=== PATIENT | female | born 1980 | race Caucasian/White ===

== ENCOUNTER → 2020-10-23 14:54 | Outpatient (CLI) | payer BC, SELFPAY ==
--- NOTE | ~2020-10-23 | XR_ITS ---
EXAMINATION: XR chest 2V 10/23/2020 15:19 INDICATION: Cough PROCEDURE: 2 view chest COMPARISON: No prior studies for comparison. FINDINGS: The lungs are clear. The lungs are hyperinflated which is consistent with, but not diagnost ic of chronic obstructive pulmonary disease. The cardiomediastinal silhouette is within normal limits . There are no pleural effusions. There is no pneumothorax suspected. IMPRESSION: 1: NO ACUTE CARDIOPULMONARY DISEASE. Reviewed, dictated and finalized at location A. OMER ACQUISITION MANAGER
== END ==
PROVIDERS: PCP Physician Assistant; Visit Provider Physician Assistant
DX: R05 Cough (principal)
CPT/HCPCS: 71046

== ENCOUNTER → 2021-09-05 03:24 | Outpatient (CLI) | payer BC, SELFPAY ==
[2021-09-10 22:24] LABS: SARS-CoV-2 RNA PCR Negative
== END ==
PROVIDERS: PCP Physician Assistant; Visit Provider Nurse Practitioner Adult Health
DX: R09.81 Nasal congestion (principal); Z20.822 Contact with and (suspected) exposure to COVID-19
CPT/HCPCS: C9803; U0003; U0005

== ENCOUNTER → 2022-05-23 10:17 | Outpatient (CLI) | payer BC, SELFPAY ==
--- NOTE | ~2022-05-23 | MM_ITS ---
EXAMINATION: MM screening patty BI w sakshi HISTORY: Screening mammogram TECHNIQUE: Craniocaudal and mediolateral oblique 3-D tomosynthesis images were obtained and synthetic 2-D images were generated. CAD analysis was submitted and interpreted. COMPARISON: None, baseline BREAST PARENCHYMAL COMPOSITION: The breasts are extremely dense, which lowers the sensitivity of mamm ography. FINDINGS: There is no suspicious mass, calcification, or architectural distortion to suggest malignan cy in either breast. IMPRESSION: 1. No mammographic evidence of malignancy. 2. Recommend routine screening mammography in one year. BI-RADS Category 1: Negative Reviewed, dictated and finalized at location A.
== END ==
PROVIDERS: PCP Nurse Practitioner Adult Health; Visit Provider Obstetrics & Gynecology
DX: Z12.31 Encounter for screening mammogram for malignant neoplasm of breast (principal)
CPT/HCPCS: 77063; 77067

== ENCOUNTER → 2022-08-06 08:49 | Outpatient (CLI) | payer BC, SELFPAY ==
--- NOTE | ~2022-08-06 | MMUS_ITS ---
EXAMINATION: MM diagnostic patty LT w sakshi, US breast LT limited HISTORY: Palpable left breast abnormality in the upper outer quadrant TECHNIQUE: Additional 3-D tomosynthesis images of the left breast were performed and synthetic 2-D im ages were generated. CAD analysis was submitted and interpreted. High resolution Limited left breast ultrasound was performed. COMPARISON: 05/23/2022 BREAST PARENCHYMAL COMPOSITION: The breasts are extremely dense, which lowers the sensitivity of mamm ography FINDINGS: MAMMOGRAPHIC FINDINGS: There are no suspicious masses, calcifications or architectural distortion in the left breast to sugg est malignancy. ULTRASOUND: Limited left breast ultrasound: At 2:00, 6 cm from the nipple there is a 2 mm cyst. No suspicious mas ses to suggest malignancy. IMPRESSION: 1. No evidence for malignancy in the left breast. 2. Routine yearly screening mammogram and regular clinical breast examination are recommended. BI-RADS Category 2: Benign finding(s). Reviewed, dictated and finalized at location A. RCEPTOR OPERATOR IMPRESSION: 1. No evidence for malignancy in the left breast. 2. Routine yearly screening mammogram and regular clinical breast examination a re recommended. BI-RADS Category 2: Benign finding(s).
== END ==
PROVIDERS: PCP Obstetrics & Gynecology; Visit Provider Obstetrics & Gynecology
DX: N63.20 Unspecified lump in the left breast, unspecified quadrant (principal)
CPT/HCPCS: 76642; 77061; 77065; G0279

== ENCOUNTER → 2023-08-07 10:27 | Outpatient (CLI) | payer BC, SELFPAY ==
--- NOTE | ~2023-08-07 | MM_ITS ---
EXAMINATION: MM screening patty BI w sakshi HISTORY: Screening mammogram TECHNIQUE: Craniocaudal and mediolateral oblique 3-D tomosynthesis images were obtained and synthetic 2-D images were generated. CAD analysis was submitted and interpreted. COMPARISON: 08/06/2022 diagnostic left mammogram, Limited left breast ultrasound 05/23/2022 bilateral screening mammogram BREAST PARENCHYMAL COMPOSITION: The breasts are extremely dense, which lowers the sensitivity of mamm ography. FINDINGS: There is no evidence of suspicious mass, calcification, or architectural distortion to sugg est malignancy in either breast. There has been no suspicious interval change. IMPRESSION: 1. No mammographic evidence of malignancy. 2. Recommend routine screening mammography in one year. 3. Extremely dense fibroglandular stroma throughout both breasts reduces the sensitivity of the mammo graphic examination. Monthly breast self examination is important as well as annual physical examinat ion. Breast ultrasound examination may be of supplemental benefit in this setting. BI-RADS Category 1: Negative Reviewed, dictated and finalized at location B. ESS CONSULTANT IMPRESSION: 1. No mammographic evidence of malignancy. 2. Recommend routine screening mammography in one year. 3. Extremely dense fibroglandular stroma throughout both breasts reduces the se nsitivity of the mammographic examination. Monthly breast self examination is i mportant as well as annual physical examination. Breast ultrasound examination may be of supplemental benefit in this setting. BI-RADS Category 1: Negative
== END ==
PROVIDERS: PCP Obstetrics & Gynecology; Visit Provider Obstetrics & Gynecology
DX: Z12.31 Encounter for screening mammogram for malignant neoplasm of breast (principal)
CPT/HCPCS: 77063; 77067

== ENCOUNTER → 2023-08-20 09:34 | Outpatient (CLI) | payer BC, SELFPAY ==
--- NOTE | ~2023-08-20 | MR_ITS ---
MRI of the left knee Clinical history: Chronic pain Technique: Coronal proton density and proton density-weighted images, sagittal proton-density and T2 fat-sat images, and axial proton-density fat-saturated images were acquired. Findings: Anterior and posterior cruciate ligaments are intact. Medial collateral ligament and the la teral collateral ligament complex are intact. Popliteus tendon is intact. Medial and lateral menisci are intact, without evidence of tear. No focal high-grade chondral lesion identified. Bone marrow signals are unremarkable. Extensor mechanism is intact. No joint effusion or Mayers's cyst. Impression: Unremarkable exam. Reviewed, dictated and finalized at location . FOR[employer]ING [employer] WORKER [employer]ESH Impression: Unremarkable exam.
== END ==
PROVIDERS: PCP Nurse Practitioner Family; Visit Provider Nurse Practitioner Family
DX: M25.562 Pain in left knee (principal); G89.29 Other chronic pain
CPT/HCPCS: 73721

== ENCOUNTER 2023-11-04 08:58 | Outpatient (CLI) | payer BC, SELFPAY ==
--- NOTE | ~2023-11-04 | US_ITS ---
EXAMINATION: US breast BI limited HISTORY: Palpable lumps in the upper outer quadrants of the breasts are clinical examination TECHNIQUE: Limited bilateral breast ultrasound was performed. COMPARISON: 08/06/2022 FINDINGS: There is a 1.6 x 0.8 cm oval, circumscribed, parallel, complex cystic and solid mass in the right breast at the 12:00 location, 3 cm from the mass demonstrates posterior acoustic enhancement a nd internal vascularity in the solid component. Sonographic features are suggestive of clustered micr ocysts. There is a 3 mm x 1 mm oval, circumscribed, parallel, hypoechoic mass with no posterior featu res or internal vascularity in left breast at the 1:30 location, 4 cm from the nipple. A 10 mm x 3 mm mass with similar sonographic features is also seen in the left breast at the 1:00 location, 6 cm fr om the nipple. No sonographic correlate is identified in the left breast at the site of the patient's pain. IMPRESSION: Probably benign bilateral breast masses. Follow-up targeted bilateral breast ultrasound in six months is recommended. BI-RADS category 3, probably benign findings. Reviewed, dictated and finalized at location A. HIKER IMPRESSION: Probably benign bilateral breast masses. Follow-up targeted bilateral breast ul trasound in six months is recommended. BI-RADS category 3, probably benign findings.
== END 2023-11-04 08:59 ==
PROVIDERS: PCP Surgery; Visit Provider Registered Nurse
DX: N63.10 Unspecified lump in the right breast, unspecified quadrant (principal); N63.20 Unspecified lump in the left breast, unspecified quadrant; R92.8 Other abnormal and inconclusive findings on diagnostic imaging of breast
CPT/HCPCS: 76642

== ENCOUNTER 2023-11-18 09:49 | Outpatient (CLI) | payer BC, SELFPAY ==
--- NOTE | ~2023-11-18 | MR_ITS ---
MR breast BI wo/w con 11/18/2023 13:08 ENVIRONMENTAL SERVICES DIRECTOR INDICATION: Left breast mass with pain. TECHNIQUE: MRI of the breasts perform using standard protocol pre-and post IV contrast with the follo wing sequences: Axial T2 STIR, axial T1, axial vibrant T1 with fat suppression precontrast and multip hasic postcontrast. 10 cc MultiHance administered intravenously. COMPARISON: Bilateral breast ultrasound dated 11/04/2023 and screening mammogram dated 08/07/2023 FINDINGS: There are no abnormalities on the precontrast sequences. There is moderate background paren chymal enhancement. In the upper inner quadrant of the right breast at 1:00 posteriorly, 9.6 cm from the nipple there is a 9 x 7 x 6 mm mass with rapid washout enhancement. There is appears to be contig uous with adjacent blood vessels. In the lower inner quadrant of the right breast at 4:00 there is a 7 x 7 x 4 mm irregular shaped oval mass with rapid washout heterogeneous enhancement. No evidence of signal abnormalities in the axillary or internal mammary node distributions. LEFT BREAST: No signal abnormalities on precontrast sequences. There is mild background parenchymal enhancement. No enhancing lesions following contrast administration. No areas of enhancement meeti ng threshold criteria on CAD analysis. No evidence of signal abnormalities in the axillary or inter nal mammary node distributions.] IMPRESSION: 1: Right breast: Focal masses of the right breast in the upper inner quadrant and the lower inner qu adrant as described above. The superior mass may be vascular in nature. Recommend second look complet e right breast ultrasound for further investigation. BI-RADS Category 0. 2: Left breast: Negative. No evidence of malignancy. No suspicious masses are identified to corresp ond to left breast masses seen on recent ultrasound. BI-RADS category 1. Recommend annual mammograph y follow-up. Reviewed, dictated and finalized at location A. RONMENTAL SERVICES DIRECTOR IMPRESSION: 1: Right breast: Focal masses of the right breast in the upper inner quadrant and the lower inner quadrant as described above. The superior mass may be vascu lar in nature. Recommend second look complete right breast ultrasound for furth er investigation. BI-RADS Category 0. 2: Left breast: Negative. No evidence of malignancy. No suspicious masses are identified to correspond to left breast masses seen on recent ultrasound. BI-R ADS category 1. Recommend annual mammography follow-up.
== END 2023-11-18 09:50 | disposition home or self-care (01) ==
PROVIDERS: PCP Surgery; Visit Provider Surgery
DX: N63.12 Unspecified lump in the right breast, upper inner quadrant (principal); N63.14 Unspecified lump in the right breast, lower inner quadrant; R92.343 Mammographic extreme density, bilateral breasts
CPT/HCPCS: 77049; A9577; C8908

== ENCOUNTER 2023-11-27 09:09 | Outpatient (CLI) | payer BC, SELFPAY ==
--- NOTE | ~2023-11-27 | US_ITS ---
US breast RT complete DATE: 11/27/2023 09:56 INDICATION: Second look ultrasound examination of right breast recommended on 11/18/2023 MRI breast ex amination TECHNIQUE: Real time and color flow imaging of the complete right breast, including all four quadrant s and subareolar area COMPARISON: 08/07/2023 bilateral screening mammogram 11/04/2023 bilateral limited breast ultrasound 11/18/2023 MRI breast bilateral FINDINGS: 12:00 3 cm from nipple: 13 x 7 x 16 mm complex mixed cystic and solid mass, with minimal internal v ascularity, with some thick septations. There is parallel orientation, but the margins are not comple tely defined. There is minimal focal posterior shadowing. Ultrasound-guided biopsy is recommended. No other suspicious mass or shadowing is detected. IMPRESSION: Indeterminate incompletely circumscribed complex mass with some internal vascularity, min imal shadowing; ultrasound-guided biopsy is recommended. Recommendation: Ultrasound-guided biopsy of right breast 12:00 lesion 3 cm from nipple Reviewed, dictated and finalized at Location A. Reviewed, dictated and finalized at location A. THER IMPRESSION: Indeterminate incompletely circumscribed complex mass with some int ernal vascularity, minimal shadowing; ultrasound-guided biopsy is recommended. Recommendation: Ultrasound-guided biopsy of right breast 12:00 lesion 3 cm from nipple
== END 2023-11-27 09:10 ==
LOC: MICIMG 09:11
PROVIDERS: PCP Obstetrics & Gynecology; Visit Provider Surgery
DX: R92.8 Other abnormal and inconclusive findings on diagnostic imaging of breast (principal); N63.10 Unspecified lump in the right breast, unspecified quadrant
CPT/HCPCS: 76641

== ENCOUNTER 2023-12-21 09:16 | Outpatient (CLI) | payer BC, SELFPAY ==
--- NOTE | ~2023-12-21 | US_ITS ---
US breast RT limited 12/24/2023 11:49 Indication: Right breast mass seen on prior examination. Biopsy requested. Procedure: High-resolution Limited ultrasound of the right breast Comparison: 11/27/2023 Findings: At 12:00, 3 cm from the nipple there is a cluster of microcysts measuring 1.6 x 0.7 x 0.8 cm with min imal vascularity in the intervening soft tissue between the cyst. No suspicious masses to suggest mal ignancy. Impression: 1: Benign-appearing cluster of microcyst of the right breast. No suspicious masses to suggest maligna ncy. Findings discussed with the patient at the time of examination. Short-term follow-up is recommen ded in 6 months. BI-RADS CATEGORY 3-PROBABLY BENIGN FINDING RECOMMENDATION: Six-month follow-up diagnostic right mammogram and right breast ultrasound recommende d. Reviewed, dictated and finalized at location A.
--- NOTE | ~2023-12-21 | US_ITS ---
US breast RT limited 12/24/2023 11:49 Indication: Right breast mass seen on prior examination. Biopsy requested. Procedure: High-resolution Limited ultrasound of the right breast Comparison: 11/27/2023 Findings: At 12:00, 3 cm from the nipple there is a cluster of microcysts measuring 1.6 x 0.7 x 0.8 cm with min imal vascularity in the intervening soft tissue between the cyst. No suspicious masses to suggest mal ignancy. Impression: 1: Benign-appearing cluster of microcyst of the right breast. No suspicious masses to suggest maligna ncy. Findings discussed with the patient at the time of examination. Short-term follow-up is recommen ded in 6 months. BI-RADS CATEGORY 3-PROBABLY BENIGN FINDING RECOMMENDATION: Six-month follow-up diagnostic right mammogram and right breast ultrasound recommende d. Reviewed, dictated and finalized at location A. Impression: 1: Benign-appearing cluster of microcyst of the right breast. No suspicious mas ses to suggest malignancy. Findings discussed with the patient at the time of e xamination. Short-term follow-up is recommended in 6 months. BI-RADS CATEGORY 3-PROBABLY BENIGN FINDING RECOMMENDATION: Six-month follow-up diagnostic right mammogram and right breast ultrasound recommended.
== END 2023-12-21 09:17 | disposition home or self-care (01) ==
PROVIDERS: PCP Obstetrics & Gynecology; Visit Provider Surgery
DX: R92.8 Other abnormal and inconclusive findings on diagnostic imaging of breast (principal); N63.10 Unspecified lump in the right breast, unspecified quadrant
CPT/HCPCS: 76642